=== PATIENT | female | born 1950 | race African-American/Black ===

== ENCOUNTER 2025-02-12 21:11 | Inpatient (IN) | payer OTHER, MEDICARE ==
[~2025-02-12] VITALS: Ht 167.6 cm; Wt 103.5 kg
[2025-02-12 21:18] VITALS: O2SAT 94
[2025-02-12 23:32] LABS: BASOPHILS % 1.1 % (0.0-2.0); EOSINOPHILS % 2.1 % (0.0-5.0); HEMATOCRIT. 46.1 % (36.0-48.0); HEMOGLOBIN. 14.3 g/dL (12.0-16.0); LYMPHOCYTES % 33.5 % (20.0-50.0); MEAN PLATELET VOLUME 8.0 fl (7.4-10.4); MONOCYTES % 9.2 % (2.0-8.0); NEUTROPHILS % 54.1 % (40.0-76.0); PLATELET 196 x1000/uL (130-400); RED BLOOD CELL COUNT 4.51 mill/uL (4.2-5.4); RED CELL DISTRIBUTION WIDTH 15.4 % (11.6-14.6)
[2025-02-12 23:40] LABS: TROPONIN I HIGH SENSITIVITY < 4 ng/L (3.0-34)
[2025-02-13 00:28] LABS: CREATININE 0.9 mg/dL (0.6-1.0); UREA NITROGEN BLOOD 12 mg/dL (9-23)
[2025-02-13] MEDS ORDERED: IPRATROPIUM/ALBUTEROL 0.5-3(2.5)MG/3ML NEB HHN PRN (00:45)
[2025-02-13] MEDS ORDERED: DOCUSATE SODIUM 100MG CAPSULE PO PRN (00:45)
[2025-02-13] MEDS ORDERED: DEXTROSE 50% WATER 50ML SYRINGE IV PRN (00:45)
[2025-02-13] MEDS ORDERED: ACETAMINOPHEN 325MG TABLET PO PRN (00:45)
[2025-02-13] MEDS ORDERED: GUAIFENESIN 200MG/10ML SUGAR FREE UDC PO PRN (00:45)
[2025-02-13] MEDS ORDERED: MAGNESIUM/ALUMINUM HYDROXIDE/SIMETHICONE 30ML UDC PO PRN (00:45)
[2025-02-13] MEDS ORDERED: ONDANSETRON HCL 4MG/2ML INJ IV PRN (00:45)
[2025-02-13] MEDS ORDERED: CLONIDINE 0.1MG TABLET PO PRN (00:45)
[2025-02-13 01:40] LABS: CREATININE 0.8 mg/dL (0.6-1.0)
[2025-02-13 01:41] LABS: UREA NITROGEN BLOOD 9 mg/dL (9-23)
[2025-02-13 01:43] LABS: PHOSPHORUS 3.0 mg/dL (2.5-4.9)
[2025-02-13 01:52] VITALS: BP 130/82; PULSE 99; RESP 20; TEMP 36.5292
[2025-02-13] MEDS ORDERED: IOHEXOL-350 100 ML BOTTLE ONE (02:30)
[2025-02-13] MEDS ORDERED: METO-396 PO (02:54)
[2025-02-13] MEDS ORDERED: ATOR40TA70 MT (02:55)
[2025-02-13] MEDS ORDERED: METF-1149 MT (02:58)
[2025-02-13] MEDS ORDERED: TOPI50TA MT (02:59)
[2025-02-13] MEDS ORDERED: TIOT18CA3 IH (03:00)
[2025-02-13] MEDS ORDERED: BUDE10.32 (03:01)
[2025-02-13 03:42] LABS: FOLIC ACID (FOLATE) SERUM 15.58 ng/mL (>5.38); VITAMIN B12 SERUM 522 pg/mL (211-911)
[2025-02-13 04:00] VITALS: BP 134/61; PULSE 88; RESP 20; TEMP 36.2; O2SAT 98
[2025-02-13 04:33] LABS: TROPONIN I HIGH SENSITIVITY < 4 ng/L (3.0-34)
[2025-02-13 04:37] LABS: CLARITY URINE CLEAR (CLEAR); COLOR URINE YELLOW (YELLOW); GLUCOSE URINE NEGATIVE (NEGATIVE); KETONES URINE NEGATIVE (NEGATIVE); LEUKOCYTE ESTERASE URINE NEGATIVE (NEGATIVE); NITRITE URINE NEGATIVE (NEGATIVE); OCCULT BLOOD URINE NEGATIVE (NEGATIVE); PH URINE 5.5 (4.5-8.0); PROTEIN URINE NEGATIVE (NEGATIVE); SPECIFIC GRAVITY URINE 1.025 (1.005-1.030); UROBILINOGEN URINE 0.2 E.U./dL (0.2-1.0)
[2025-02-13 04:46] LABS: *AMPHETAMINES SCREEN URINE NEGATIVE (NEGATIVE); *BENZODIAZEPINES SCREEN URINE NEGATIVE (NEGATIVE)
[2025-02-13 04:47] LABS: *BARBITURATES SCREEN URINE NEGATIVE (NEGATIVE); *COCAINE SCREEN URINE NEGATIVE (NEGATIVE); CANNABINOID URINE SCREEN PRESUMPTIVE POSITIVE (NEGATIVE); ECSTASY MDMA SCREEN URINE NEGATIVE (NEGATIVE); METHADONE URINE SCREEN NEGATIVE (NEGATIVE); OPIATES URINE SCREEN NEGATIVE (NEGATIVE); PHENCYCLIDINE URINE SCREEN NEGATIVE (NEGATIVE)
[2025-02-13 07:05] LABS: TRIGLYCERIDE 87.0 mg/dL (0-150); TROPONIN I HIGH SENSITIVITY < 4 ng/L (3.0-34)
[2025-02-13 07:06] LABS: LDL CHOLESTEROL 75.0 mg/dL (5-100)
[2025-02-13 07:09] LABS: T4 FREE 1.08 ng/dL (0.89-1.76)
[2025-02-13 08:00] VITALS: BP 125/56; PULSE 98; RESP 18; TEMP 36.3; O2SAT 97
[2025-02-13] MEDS: PANTOPRAZOLE SODIUM 40 MG/VIAL IV SCH (08:28)
[2025-02-13] MEDS: METOPROLOL TARTRATE 25MG TABLET PO SCH (11:14)
[2025-02-13 12:00] VITALS: BP 130/64; PULSE 91; RESP 20; TEMP 36.3; O2SAT 98
[2025-02-13 12:30] LABS: TROPONIN I HIGH SENSITIVITY < 4 ng/L (3.0-34)
[2025-02-13 16:00] VITALS: BP 134/67; PULSE 84; RESP 18; TEMP 36.3; O2SAT 98
[2025-02-13 20:00] VITALS: BP_SYST 113; BP_SYST 129; BP_SYST 140; BP_DIAS 60; BP_DIAS 77; BP_DIAS 79; PULSE 90; RESP 18; TEMP 36.2; O2SAT 97
[2025-02-14] VITALS (8 sets, daily range): BP systolic 117–150; BP diastolic 60–80; PULSE 86–100; RESP 18; TEMP 36.2–36.6; O2SAT 97–100
[2025-02-14 07:16] LABS: CREATININE 0.7 mg/dL (0.6-1.0); UREA NITROGEN BLOOD 10 mg/dL (9-23)
[2025-02-14 09:17] LABS: PLATELET 231 x1000/uL (130-400); RED BLOOD CELL COUNT 4.19 mill/uL (4.2-5.4); RED CELL DISTRIBUTION WIDTH 14.0 % (11.6-14.6)
[2025-02-14] MEDS: ATORVASTATIN CALCIUM 40MG TABLET PO SCH (20:52)
[2025-02-14] MEDS: ENOXAPARIN 30MG/0.3ML SYR SUBCUT SCH (20:53)
[2025-02-15] VITALS: BP 126/67; PULSE 99; RESP 18; TEMP 36.4; O2SAT 97
[2025-02-15 04:00] VITALS: BP 124/72; PULSE 94; RESP 18; TEMP 36.4; O2SAT 98
[2025-02-15 06:54] LABS: HEMATOCRIT. 38.8 % (36.0-48.0); HEMOGLOBIN. 12.7 g/dL (12.0-16.0); MEAN PLATELET VOLUME 8.5 fl (7.4-10.4); PLATELET 227 x1000/uL (130-400); RED BLOOD CELL COUNT 4.01 mill/uL (4.2-5.4); RED CELL DISTRIBUTION WIDTH 14.2 % (11.6-14.6)
[2025-02-15 07:10] LABS: CREATININE 0.7 mg/dL (0.6-1.0); TROPONIN I HIGH SENSITIVITY < 4 ng/L (3.0-34); UREA NITROGEN BLOOD 7 mg/dL (9-23)
[2025-02-15 08:00] VITALS: BP 119/68; PULSE 98; RESP 20; TEMP 36.9; O2SAT 98
[2025-02-15 12:00] VITALS: BP 121/67; PULSE 97; RESP 18; TEMP 36.9; O2SAT 97
[2025-02-15 16:09] VITALS: BP 142/85; PULSE 78; RESP 20; TEMP 98.4
[2025-02-16 16:17] LABS: EOSINOPHILS % MANUAL 2.0 % (0.0-5.0); LYMPHOCYTES % MANUAL 60.0 % (20.0-60.0); MONOCYTES % MANUAL 13.0 % (2.0-8.0); NEUTROPHILS % MANUAL 25.0 % (45.0-75.0); PLATELET ESTIMATE NORMAL
== END 2025-02-15 16:40 | disposition home or self-care (01) | DRG 74 ==
LOC: ER 21:11 → EDBEDREQDT 02-13 00:41 → EDBEDREQ 02-13 00:41 → EDBEDREQTM 02-13 00:41 → ENRESERV 02-13 01:19 → 7WST 02-13 01:53
PROVIDERS: ADMIT Hospitalist; ATTEND Hospitalist
DX: G90.89 Other disorders of autonomic nervous system (principal); I47.11 Inappropriate sinus tachycardia, so stated; D75.89 Other specified diseases of blood and blood-forming organs; E11.9 Type 2 diabetes mellitus without complications; E66.01 Morbid (severe) obesity due to excess calories; E05.90 Thyrotoxicosis, unspecified without thyrotoxic crisis or storm; I10 Essential (primary) hypertension; J45.909 Unspecified asthma, uncomplicated; E78.5 Hyperlipidemia, unspecified; Z68.36 Body mass index [BMI] 36.0-36.9, adult; K80.20 Calculus of gallbladder without cholecystitis without obstruction; F12.90 Cannabis use, unspecified, uncomplicated; Z79.899 Other long term (current) drug therapy
CPT/HCPCS: 36415; 71045; 71275; 80048; 80061; 80305; 80320; 81003; 82550; 82607; 82746; 83735; 84100; 84439; 84443; 84484; 85025; 85027; 85379; 93005; 93306; 93970; 97161; 99285; A4606; J1650; J2470; Q9967; G0480